=== PATIENT | male | born 1985 | race Caucasian/White ===

== ENCOUNTER 2021-03-14 14:53 | Emergency (ER) | payer MEDICAID ==
[~2021-03-14] VITALS: Ht 182.9 cm; Wt 83.9 kg
--- NOTE | 2021-03-14 15:00 | NUR ---
at bedside for assessment
[2021-03-14] MEDS ORDERED: LORAZEPAM 0.5 MG TABLET PO ONE (15:15)
[2021-03-14] MEDS ORDERED: LORAZEPAM 1 MG TABLET ONE (15:38)
[2021-03-14 17:10] VITALS: BP 137/78
== END 2021-03-14 17:10 | disposition home or self-care (01) ==
LOC: ER 14:58
DX: F41.9 Anxiety disorder, unspecified (principal); F10.20 Alcohol dependence, uncomplicated
CPT/HCPCS: A4663